=== PATIENT | female | born 2000 | race American Indian/Alaskan Native ===

== ENCOUNTER 2020-02-20 12:47 | Emergency (ER) | payer SELFPAY ==
[2020-02-20 14:48] LABS: Amphetamine Screen,Urine PRESUMPTIVE NEGATIVE; Benzodiazepines Screen,Urine PRESUMPTIVE NEGATIVE; Methadone Screen,Urine PRESUMPTIVE NEGATIVE; Opiate Screen,Urine PRESUMPTIVE NEGATIVE
--- NOTE | 2020-02-20 14:51 | Emergency Department Report ---
ED Psych HPI - General Chief Complaint: Medical Clearance Stated Complaint: SUICIDAL IDEALATIONS Time Seen by Provider: 02/20/20 14:31 Source: patient Mode of arrival: Ambulatory - History of Present Illness Initial Comments: Patient is 19 years old female with history of polysubstance abuse including EtOH, Xanax, Percocet and Laura. Patient brought to the ER from her current detox facility for evaluation of suicidal ideation. Patient looks depressed and feels depressed as she stated. Patient stated that she is thinking about hanging herself. Patient stated that she had history of suicidal attempt before by jumping her car from a bridge. Eyes any visual or auditory hallucination. No homicidal ideation. MD Complaint: suicidal ideation, feels depressed - Related Data Allergies Allergy/AdvReac Type Severity Reaction Status Date / Time No Known Allergies Allergy Verified 02/19/20 15:37 ED Review of Systems ROS: Stated complaint: SUICIDAL IDEALATIONS Other details as noted in HPI Comment: All other systems reviewed and negative Constitutional: denies: chills, fever Respiratory: denies: cough, shortness of breath, SOB with exertion Cardiovascular: denies: chest pain, palpitations Gastrointestinal: denies: abdominal pain, nausea, vomiting Neurological: denies: headache, weakness, numbness, paresthesias, confusion Psychiatric: depression, suicidal thoughts. denies: auditory hallucinations, visual hallucinations, homicidal thoughts ED Past Medical Hx - Past Medical History Previous Medical History?: Yes Hx Psychiatric Treatment: Yes (ptsd 2015, anxiety 2015, Depression 2009) - Surgical History Past Surgical History?: Yes Hx Appendectomy: Yes (age 55 year old) - Social History Smoking Status: Current Every Day Smoker Substance Use Type: Alcohol, Marijuana, Other ED Physical Exam - General Limitations: No Limitations General appearance: alert, in no apparent distress, other (Depressed mood.) - Head Head exam: Present: atraumatic, normocephalic, normal inspection - Eye Eye exam: Present: normal appearance - ENT ENT exam: Present: normal exam, normal orophraynx, mucous membranes moist - Neck Neck exam: Present: normal inspection, full ROM. Absent: tenderness, meningismus, lymphadenopathy, thyromegaly - Respiratory Respiratory exam: Present: normal lung sounds bilaterally - Cardiovascular Cardiovascular Exam: Present: regular rate, normal rhythm, normal heart sounds - GI/Abdominal GI/Abdominal exam: Present: soft, normal bowel sounds. Absent: distended, tenderness, guarding, rebound, rigid, mass, bruit, pulsatile mass, hernia - Extremities Exam Extremities exam: Present: normal inspection, full ROM, normal capillary refill - Neurological Exam Neurological exam: Present: alert, oriented X3, CN II-XII intact, normal gait, reflexes normal. Absent: motor sensory deficit - Psychiatric Psychiatric exam: Present: depressed, suicidal ideation. Absent: agitated, anxious, flat affect, manic, homicidal ideation - Skin Skin exam: Present: warm, intact, normal color ED Course Vital Signs 02/20/20 02/20/20 02/21/20 14:04 20:59 03:07 Temperature 97.9 F 98.2 F 97.6 F Pulse Rate 74 68 76 Respiratory 18 16 16 Rate Blood Pressure 118/75 109/52 107/69 [Right] O2 Sat by Pulse 97 98 98 Oximetry 02/21/20 02/21/20 02/22/20 08:31 19:40 01:20 Temperature 97.8 F 98.4 F 98.3 F Pulse Rate 85 72 90 Respiratory 20 18 18 Rate Blood Pressure 124/71 106/61 112/64 [Right] O2 Sat by Pulse 100 97 96 Oximetry 02/22/20 08:25 Temperature 98.3 F Pulse Rate 85 Respiratory 16 Rate Blood Pressure 121/78 [Right] O2 Sat by Pulse 98 Oximetry ED Medical Decision Making - Lab Data Result diagrams: 02/20/20 14:43 02/20/20 14:43 Critical care attestation.: If time is entered above; I have spent that time in minutes in the direct care of this critically ill patient, excluding procedure time. ED Disposition Clinical Impression: Polysubstance abuse, Suicidal ideation Disposition: [id number]/TX-[id number] PSY HOSP/PSY UNIT Is pt being admited?: No Condition: Stable Referrals: GRADY HARDY MD [Other] - 3-5 Days
[2020-02-20 14:54] LABS: Bilirubin,Urine NEG (Negative); Blood,Urine NEG (Negative); Color,Urine Yellow (Yellow); Protein,Urine <15 mg/dL mg/dL (Negative); RBC,Urine < 1.0 /HPF (0.0-6.0)
[2020-02-20 15:09] LABS: Cannabinoid Screen,Urine PRESUMPTIVE POSITIVE; Cocaine Screen,Urine PRESUMPTIVE POSITIVE
[2020-02-20 15:14] LABS: Basophils % (Auto) 0.8 % (0.0-1.8); Eosinophils % (Auto) 0.8 % (0.0-4.3); Hematocrit 39.4 % (30.3-42.9); Lymphocytes # (Auto) 1.3 K/mm3 (1.2-5.4); Lymphocytes % (Auto) 25.5 % (13.4-35.0); Mean Corpuscular HGB Conc 33 % (30-34); Mean Corpuscular Volume 80 fl (79-97); Monocytes # (Auto) 0.2 K/mm3 (0.0-0.8); Monocytes % (Auto) 4.9 % (0.0-7.3); Platelet Count 300 K/mm3 (140-440); Red Blood Count 4.92 M/mm3 (3.65-5.03); Red Cell Distribution Width 12.8 % (13.2-15.2)
[2020-02-20 15:18] LABS: BUN/Creatinine Ratio 16; Blood Urea Nitrogen 11 mg/dL (7-17); Calcium 9.9 mg/dL (8.4-10.2); Hemolysis Index 5
--- NOTE | 2020-02-21 10:56 | Consultation ---
History of Present Illness - Reason for Consult Consult date: 02/21/20 Reason for consult: SI w plan, depression - History of Present Psychiatric Illness Sisi Lott is a 19y/o female patient who came to the ER for polysubstance abuse, depression, and suicidal ideation. During my interview with the patient, she is lying down. She is awake. The patient is a/o x 3. She is calm and cooperative. Her affect is restricted. She verbalizes being "depressed." The patient denies being suicidal at present, stating, "not anymore. I was in the middle of my detox." The patient says she does, "cocaine, xanax, and alcohol." She says she attempted suicide, "twice" in the past. The patient says, she's been admitted "only once" other than this time for psychiatric issues. The patient denies seeing outpatient psych, but states she "sees someone at her detox place." The patient denies any problems with her appetite or sleep cycle. She denies hallucinations of any kind, however after leaving the patient's room, she appeared to be speaking with someone as I was walking by. I reentered her room and asked the patient who was she speaking to. She stated, "I was asking the nurse for a remote because my tv is not working." There was no one in her room. PAST PSYCHIATRIC HISTORY Diagnoses: Depression, Anxiety, PTSD Suicide attempts or Self-harm behavior: "twice" Prior psychiatric hospitalizations: "Once" Substance Abuse history: Alcohol, cocaine, xanax Previous psychiatric medications tried: Could not recall Outpatient treatment: Detox SOCIAL HISTORY Marital Status: Single Living Arrangements: With parents Employment Status: Ememployed Access to guns/weapons: Denies Education: High school History of abuse: Drug abuse Legal History: Denies ROS Constitutional: Negative for weight loss EMT: Negative for stridor Respiratory: Negative for cough or hemoptysis All other systems reviewed and are negative MENTAL STATUS EXAMINATION General Appearance: Dressed appropriately. Behavior: Calm and cooperative Mood: "Depressed" Affect: Congruent with stated mood, Restricted Speech: Normal tone and pace Thought Process: Responding to internal stimuli Suicidal Ideation: Yes Homicidal Ideation: Denies Hallucinations: Auditory Delusions: None elicited Insight and Judgment: Limited Memory/Cognition: Limited Assessment and Plan Major Depressive Disorder, Severe, w/Psychotic Features Polysubsance Abuse Substance Induced Mood Disorder RECOMMENDATIONS Assess CIWA MEDICATIONS Abilify 2mg po daily Depakote DR 125mg po BID Trazodone 50mg po qhs Lorazepam 0.5mg PO q5h prn agitation Haldol 5mg IM q6h prn agitation Risks, benefits and alternatives of medications discussed with the patient, questions answered and consent obtained from patient. PSYCHOTHERAPY: Supportive psychotherapy provided MEDICAL: Per primary team DELIRIUM PRECAUTIONS: Please re-orient patient frequently, keep lights on during the day, and minimize benzodiazepines and opiates as these medications could worsen patient's confusion. 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 The patient may transfer to an acute psychiatric facility once medically clear. FOLLOW-UP: Will follow until transferred or the patient improves enough for discharge Thank you for the consult. Please contact with any questions and/or concerns. Medications and Allergies Allergies Allergy/AdvReac Type Severity Reaction Status Date / Time No Known Allergies Allergy Verified 02/19/20 15:37 Mental Status Exam - Vital signs Last Vital Signs Temp 97.8 F 02/21/20 08:31 Pulse 85 02/21/20 08:31 Resp 20 02/21/20 08:31 BP 124/71 02/21/20 08:31 Pulse Ox 100 02/21/20 08:31 Results Result Diagrams: 02/20/20 14:43 02/20/20 14:43 Abnormal lab results 02/20/20 02/20/20 02/20/20 Range/Units 14:43 14:43 14:43 MCH 26 L (28-32) pg RDW 12.8 L (13.2-15.2) % Salicylates < 0.3 L (2.8-20.0) mg/dL Acetaminophen < 5.0 L (10.0-30.0) ug/mL All other labs normal.
[2020-02-21] MEDS ORDERED: LORazepam 0.5 MG TAB PO PRN (10:59)
[2020-02-21] MEDS ORDERED: HALOPERIDOL LACTATE 5 MG/1 ML INJ IM PRN (11:00)
[2020-02-21] MEDS: DIVALPROEX DR 125 MG TAB PO SCH ×2 (12:45→22:01)
[2020-02-21] MEDS: ARIPiprazole 5 MG TAB PO SCH (16:54)
[2020-02-21] MEDS ORDERED: traZODone 50 MG TAB PO SCH (22:00)
--- NOTE | 2020-02-22 11:11 | Progress Note ---
Subjective - Reason for Consult Consult date: 02/22/20 Reason for consult: depression, SI - Chief Complaint Chief complaint: The patient's medical record was reviewed and the patent's progress was discussed with the nursing staff. During my interview wit the patient this morning, she is sitting in her room, awake. She is a/o x 3. She appears to be in a better mood today. She makes fair eye contact. She admits to, "feeling better, not as depressed." She says she feels "anxious." The patient is asking about going back to her detox program. She denies SI/HI. She denies hallucinations of any kind. The patient states, "I wished I would have spoken to my counselor," but says "when she asked me was I suicidal the other day, I paused." She says, "but I had a lot going one." She denies any problems with her appetite and mood. ROS Constitutional: Negative for weight loss EMT: Negative for stridor Respiratory: Negative for cough or hemoptysis All other systems reviewed and are negative MENTAL STATUS EXAMINATION General Appearance: Dressed appropriately. Behavior: Calm and cooperative Mood: "Depressed" Affect: Congruent with stated mood, Restricted Speech: Normal tone and pace Thought Process: Responding to internal stimuli Suicidal Ideation: Yes Homicidal Ideation: Denies Hallucinations: Auditory Delusions: None elicited Insight and Judgment: Limited Memory/Cognition: Limited Assessment and Plan Major Depressive Disorder, Severe, w/Psychotic Features Polysubsance Abuse Substance Induced Mood Disorder RECOMMENDATIONS Assess CIWA MEDICATIONS Increased Abilify 5mg po daily Increased Depakote DR 250mg po BID Risks, benefits and alternatives of medications discussed with the patient, questions answered and consent obtained from patient. PSYCHOTHERAPY: Supportive psychotherapy provided MEDICAL: Per primary team DELIRIUM PRECAUTIONS: Please re-orient patient frequently, keep lights on during the day, and minimize benzodiazepines and opiates as these medications could worsen patient's confusion. 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 The patient may transfer to an acute psychiatric facility once medically clear. FOLLOW-UP: Will follow until transferred or the patient improves enough for discharge Thank you for the consult. Please contact with any questions and/or concerns. Mental Status Exam - Vital signs Last Vital Signs Temp 98.3 F 02/22/20 08:25 Pulse 85 06/08/20 08:25 Resp 16 02/22/20 08:25 BP 121/78 02/22/20 08:25 Pulse Ox 98 02/22/20 08:25
[2020-02-22] MEDS ORDERED: ARIPiprazole 5 MG TAB PO SCH (11:30)
[2020-02-22] MEDS: DIVALPROEX DR 125 MG TAB PO SCH (12:53)
[2020-02-22] MEDS: ARIPiprazole 5 MG TAB PO SCH (12:53)
[2020-02-22] MEDS ORDERED: DIVALPROEX DR 250 MG TAB PO SCH (22:00)
[2020-02-24 14:08] VITALS: BP 109/68
== END 2020-02-22 17:30 ==
LOC: ED 12:47 → EEVIPCON 12:47 → ED 02-22 17:30
DX: R45.851 Suicidal ideations (principal)
CPT/HCPCS: 36415; 80048; 80307; 80320; 81001; 84703; 85025; G0480